=== PATIENT | female | born 2000 | race Caucasian/White ===

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

== ENCOUNTER 2022-08-03 18:23 | Emergency (ER) | payer OTHER ==
[~2022-08-03] VITALS: Ht 165.1 cm; Wt 54.4 kg
[2022-08-03 20:12] LABS: Source, Urine Clean Catch
[2022-08-03 20:22] LABS: Bilirubin, Urine Neg (Neg); Blood, Urine Neg (Neg); Glucose Qualitative, Urine Neg (Neg); Ketones, Urine Neg (Neg); Leukocyte Esterase, Urine 3+ (Neg); Nitrite, Urine Neg (Neg); Protein, Urine Neg (Neg); Specific Gravity, Urine 1.005 (1.003-1.022); Urobilinogen, Urine NORM (Normal)
[2022-08-03 20:30] LABS: Color, Urine Pale Yellow (P-Yellow)
[2022-08-03 20:31] LABS: Appearance, Urine Hazy (Clear)
[2022-08-03 20:32] LABS: Bacteria Mod /hpf; Mucus Light (0-Heavy); Red Blood Cells, Urine 0-2 /hpf (0-2); Squamous Epithelial Cells Few /hpf (Few)
== END 2022-08-03 20:44 | disposition home or self-care (01) ==
LOC: ER 18:23
PROVIDERS: Physician Assistant
DX: O03.9 Complete or unspecified spontaneous abortion without complication (principal)
CPT/HCPCS: 36415; 76801; 81001; 84702; 87086

== ENCOUNTER → 2022-11-21 | Outpatient (CLI) | payer OTHER ==
[2022-11-22 07:10] LABS: HBSAG SCREEN Negative (Negative)
== END ==
LOC: LAB SHORT 16:25
PROVIDERS: Physician Assistant
DX: S51.802A Unspecified open wound of left forearm, initial encounter (principal)
CPT/HCPCS: 86317; 86703; 87340

== ENCOUNTER → 2023-11-26 | Outpatient (CLI) | payer OTHER ==
[~2023-11-26] MED LIST changes: +DOCU100 PO; +IBUP800 PO; +LABE100 PO; +PRENATAL TABLE1 EAC9 PO
== END ==
LOC: LAB SHORT 15:53 → LAB 15:53
DX: N30.01 Acute cystitis with hematuria (principal)
CPT/HCPCS: 87077; 87086; 87186

== ENCOUNTER → 2025-01-15 | Outpatient (CLI) | payer OTHER ==
[2025-01-15 14:51] LABS: Protein, Urine Quantitative 12.2 mg/dL (0.0-11.9)
== END ==
LOC: LAB 11:45 → LAB SHORT 11:45
PROVIDERS: Advanced Practice Midwife
DX: Z87.59 Personal history of other complications of pregnancy, childbirth and the puerperium (principal)
CPT/HCPCS: 81050; 84156

== ENCOUNTER → 2025-06-09 | Outpatient (CLI) | payer OTHER | LOC: LAB 17:05 → LAB SHORT 17:05 | DX: O09.93 Supervision of high risk pregnancy, unspecified, third trimester (principal) | CPT/HCPCS: 87081; 87150 ==

== ENCOUNTER 2025-07-03 07:10 | Inpatient (IN) | payer OTHER ==
[~2025-07-03] VITALS: Ht 165.1 cm; Wt 80.9 kg
[2025-07-03] VITALS (11 sets, daily range): BP systolic 113–135; BP diastolic 56–84
[2025-07-03] MEDS ORDERED: OXYTOCIN/RINGER'S LACTATE 500 ML IV PRN (07:20)
[2025-07-03] MEDS ORDERED: ePHEDrine Sulfate 50 MG/ML 1ML Injection XX PRN (07:20)
[2025-07-03] MEDS ORDERED: FentaNYL Citrate 50 MCG/ML 2 ML Injection IV PRN (07:20)
[2025-07-03] MEDS ORDERED: OXYTOCIN/RINGER'S LACTATE 500 ML IV SCH ×2 (07:20→13:35)
[2025-07-03] MEDS ORDERED: Oxytocin 10 Unit / ML Vial IM PRN (07:20)
[2025-07-03] MEDS ORDERED: Methylergonovine Maleate 0.2MG / ML 1ML Amp IM PRN ×2 (07:20→13:30)
[2025-07-03] MEDS ORDERED: Carboprost Tromethamine 250 MCG/ML 1ML Amp IM PRN (07:20)
[2025-07-03] MEDS ORDERED: Tranexamic Acid 100 ML IV SCH (07:20)
[2025-07-03] MEDS ORDERED: FentaNYL 2mcg/ml-Bup 0.1% Epd 250 ML EPI PRN (07:20)
[2025-07-03] MEDS ORDERED: Ondansetron HCl 2 MG / ML 2ML Vial IV PRN (07:25)
[2025-07-03] MEDS ORDERED: ASPI81CH PO (07:41)
[2025-07-03] MEDS ORDERED: NS 250 ML IV PRN (08:05)
[2025-07-03 08:16] LABS: BASOPHILS ABSOLUTE AUTO 0.04 K/mm3 (0.00-0.23); BASOPHILS PERCENT AUTO 1 % (0-2); EOSINOPHILS ABSOLUTE AUTO 0.11 K/mm3 (0.00-0.68); EOSINOPHILS PERCENT AUTO 1 % (0-6); Hematocrit 33.6 % (33.0-51.0); Hemoglobin 10.8 g/dL (11.5-16.0); IMMATURE GRAN ABSOLUTE AUTO 0.03 K/mm3 (0.00-0.10); IMMATURE GRAN PERCENT AUTO 0 % (0-1); LYMPHOCYTES ABSOLUTE AUTO 1.71 K/mm3 (0.84-5.20); LYMPHOCYTES PERCENT AUTO 20 % (21-46); MONOCYTES ABSOLUTE AUTO 0.56 K/mm3 (0.16-1.47); MONOCYTES PERCENT AUTO 7 % (4-13); Mean Corpuscular HGB Conc 32.1 g/dL (31.5-36.5); Mean Corpuscular Volume 74 fL (80-100); NEUTROPHILS ABSOLUTE AUTO 6.05 K/mm3 (1.96-9.15); NEUTROPHILS PERCENT AUTO 71 % (41-73); NRBC ABSOLUTE 0.00 K/mm3 (0.00-0.02); NRBC Auto 0.0 /100 WBC (0.0-0.2); Platelet Count 234 K/mm3 (150-400); RDW Coefficient Variation 15.6 % (11.7-14.2); RDW Standard Deviation 41.4 fL (35.1-46.3)
[2025-07-03] MEDS ORDERED: Witch Hazel/Glycerin PADS TOP PRN (13:35)
[2025-07-03] MEDS ORDERED: Benzocaine Topical Anesthetic Spray 60GM TOP PRN (13:35)
[2025-07-03] MEDS ORDERED: Ketorolac Tromethamine 30mg Vial IV PRN (13:35)
[2025-07-03] MEDS ORDERED: Methylergonovine Maleate 0.2MG / ML 1ML Amp XX ONE (15:21)
[2025-07-04 01:06] VITALS: BP 113/58
[2025-07-04 04:26] VITALS: BP 118/65
[2025-07-04 05:57] LABS: Hematocrit 30.8 % (33.0-51.0); Hemoglobin 9.9 g/dL (11.5-16.0); Mean Corpuscular HGB Conc 32.1 g/dL (31.5-36.5); Mean Corpuscular Volume 73 fL (80-100); NRBC ABSOLUTE 0.00 K/mm3 (0.00-0.02); NRBC Auto 0.0 /100 WBC (0.0-0.2); Platelet Count 206 K/mm3 (150-400); RDW Coefficient Variation 15.7 % (11.7-14.2); RDW Standard Deviation 40.6 fL (35.1-46.3)
[2025-07-04 07:32] VITALS: BP 137/56
[2025-07-04] MEDS ORDERED: Prenatal Vit/FE Fumarate/FA 1 Tab PO SCH (09:00)
[2025-07-04 12:15] VITALS: BP 125/76
[2025-07-04] MEDS ORDERED: IBU800 M1 PO (14:04)
== END 2025-07-04 15:30 | disposition home or self-care (01) | DRG 807 ==
LOC: OBS 07:10 → BC 07:10 → OBS 07:23 → BC 07:25
PROVIDERS: ADMIT Advanced Practice Midwife
PROC: 10E0XZZ Delivery of Products of Conception, External Approach (ICD-10-PCS; principal; 2025-07-03)
DX: O48.0 Post-term pregnancy (principal); Z37.0 Single live birth; Z3A.40 40 weeks gestation of pregnancy; Z79.899 Other long term (current) drug therapy; Z79.82 Long term (current) use of aspirin; O69.81X0 Labor and delivery complicated by cord around neck, without compression, not applicable or unspecified
CPT/HCPCS: 36415; 85025; 85027; 86850; 86900; 86901; 86923; A9270; J1885; J2210; J2405; J2590; J7120

== ENCOUNTER → 2025-10-14 | Outpatient (CLI) | payer OTHER ==
[~2025-10-14] MED LIST changes: +ASPI81CH PO; +IBU800 M1 PO
== END ==
LOC: LAB SHORT 12:10 → LAB 12:10
DX: J03.90 Acute tonsillitis, unspecified (principal)
CPT/HCPCS: 87081